=== PATIENT | male | born 1965 | race Caucasian/White ===

== ENCOUNTER 2020-11-10 17:38 | Emergency (ER) | payer OTHER ==
[~2020-11-10] VITALS: Ht 182.9 cm; Wt 82.8 kg
--- NOTE | 2020-11-10 17:43 | NUR ---
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
[2020-11-10] MEDS ORDERED: SODIUM CHLORIDE FLUSH 10ML SYR IVF ONE (18:30)
[2020-11-10 18:47] LABS: MICROSCOPIC AUTO
[2020-11-10 18:47] LABS: BASOPHILS % (AUTO) 1 % (0-1); EOSINOPHILS % (AUTO) 3 % (1-7); LYMPHOCYTES % (AUTO) 31 % (22-44); MEAN CORPUSCULAR HEMOGLOBIN 30.1 pg (27.5-34.5); MEAN CORPUSCULAR HGB CONC 33.6 g/dL (33.2-36.2); MEAN PLATELET VOLUME 9.7 fL (7.4-10.4); MONOCYTES % (AUTO) 9 % (2-9); NEUTROPHILS % (AUTO) 57 % (42-75); PLATELET COUNT 205 x10^3/uL (130-400); RED BLOOD COUNT 5.88 x10^6/uL (4.38-5.82); RED CELL DISTRIBUTION WIDTH 13.5 % (9.4-14.8)
[2020-11-10 19:00] LABS: ALANINE AMINOTRANSFERASE 101 U/L (12-78); ALBUMIN 3.9 g/dL (3.4-5.0); ANION GAP 4 mmol/L (5-15); CALCIUM 8.9 mg/dL (8.5-10.1); CHLORIDE 104 mmol/L (98-107); CREATININE 1.14 mg/dL (0.7-1.3)
[2020-11-10 19:02] LABS: ALKALINE PHOSPHATASE 108 U/L (45-117); BILIRUBIN,TOTAL 0.5 mg/dL (0.2-1.0); TOTAL PROTEIN 7.6 g/dL (6.4-8.2)
[2020-11-10 19:05] LABS: MD NO
--- NOTE | 2020-11-10 20:38 | NUR ---
PT COMES IN C/O "STRAIGHT BLOOD WHEN I PEE. I HAVE CLOTS IN MY URINE". PT STATES HE WAS SEEN BY A UROLOGIST TODAY WHO DIRECTED HIM TO COME TO THE ED FOR ASSESSMENT. PT STATES HX OF KIDNEY STONE THAT "USUALLY GO AWAY ON THEIR OWN IN ABOUT A MONTH". MONITORS CONNECTED. CALL LIGHT W/IN REACH
[2020-11-10 21:00] VITALS: BP 112/78
--- NOTE | 2020-11-10 21:01 | NUR ---
PT AMBULATED TO BATHROOM WITH STEADY GAIT.
--- NOTE | 2020-11-10 21:51 | NUR ---
PT AMBULATED TO DISCHARGE W/A STEADY GAIT. PT ENCOURAGED TO FOLLOWUP DISCUSSED. PT EDUCTAED TO RETURN TO THE ED W/ WORSENING SYMPTOMS
== END 2020-11-10 21:54 | disposition home or self-care (01) ==
LOC: ED 21:35
DX: N20.0 Calculus of kidney (principal); I10 Essential (primary) hypertension; Z21 Asymptomatic human immunodeficiency virus [HIV] infection status; F17.210 Nicotine dependence, cigarettes, uncomplicated; Z88.2 Allergy status to sulfonamides
CPT/HCPCS: 36415; 74176; 80053; 81001; 85025; 99284; 99406